=== PATIENT | female | born 1945 | race Caucasian/White ===

== ENCOUNTER 2018-01-05 01:24 | Outpatient (CLI) | payer MEDICARE, MEDICAID, SELFPAY ==
[2018-01-05 14:47] LABS: TSH (W/Ref FT4) 7.95 uIU/mL (0.358-3.74)
== END 2018-01-05 01:44 ==
PROVIDERS: PCP General Practice; Visit Provider General Practice
DX: E02 Subclinical iodine-deficiency hypothyroidism (principal)
CPT/HCPCS: 36415; 84439; 84443

== ENCOUNTER → 2018-01-10 12:24 | Outpatient (BNVA) | payer MEDICARE, MEDICAID, SELFPAY | PROVIDERS: Visit Provider Psychiatry & Neurology Neurology | DX: G20 Parkinson's disease (principal); I10 Essential (primary) hypertension | CPT/HCPCS: 99213 ==

== ENCOUNTER 2018-01-12 00:32 | Outpatient (CLI) | payer MEDICARE, MEDICAID, SELFPAY ==
--- NOTE | 2018-01-12 15:27 | DI.MAMMO_ITS ---
SYMPTOMS/DIAGNOSIS: SCREENING, Z12.31 MAMMOGRAM: Mammograms were interpreted according to the usual protocol including computer analysis with CAD system, tomosynthesis and C view imaging. The breast tissue is of moderate radiodensity. There is no dominant mass. Numerous bilateral benign appearing calcifications are seen. No suspicious clusters are identified. SUMMARY: No evidence of malignancy, Category 2, annual screening mammography is recommended. Breast density Category B. MQSA ASSESSMENT OF FINDINGS: MQSA ASSESSMENT OF FINDINGS: Negative with benign findings. Category 2. Patient will receive a letter notifying them of these results. BI-RADS category B. There are scattered areas of fibroglandular density.
== END 2018-01-12 00:52 ==
PROVIDERS: PCP General Practice; Visit Provider General Practice
DX: Z12.31 Encounter for screening mammogram for malignant neoplasm of breast (principal)
CPT/HCPCS: 77063; 77067

== ENCOUNTER → 2018-07-04 13:47 | Outpatient (BNVA) | payer MEDICARE, MEDICAID, SELFPAY | PROVIDERS: PCP General Practice; Visit Provider Psychiatry & Neurology Neurology | DX: G21.11 Neuroleptic induced parkinsonism (principal); I10 Essential (primary) hypertension | CPT/HCPCS: 99213 ==

== ENCOUNTER 2018-07-07 13:06 | Outpatient (CLI) | payer MEDICARE, MEDICAID, SELFPAY ==
[2018-07-07 14:52] LABS: TSH (W/Ref FT4) 6.59 uIU/mL (0.358-3.74)
[2018-07-07 15:09] LABS: ALT 26 U/L (12-78); AST 27 U/L (15-37); Albumin 3.7 g/dL (3.4-5.0); Alkaline Phosphatase 155 U/L (46-116); Bilirubin, Total 1.4 mg/dL (0.2-1.0); Cholesterol 160 mg/dL (50-200); Glucose 138 mg/dL (70-100); Total Protein 7.1 g/dL (6.4-8.2); Triglyceride 147 mg/dL (30-150)
[2018-07-07 15:11] LABS: FREE T4 0.86 ng/dL (0.76-1.46)
== END 2018-07-07 13:26 ==
PROVIDERS: PCP General Practice; Visit Provider Nurse Practitioner
DX: E03.9 Hypothyroidism, unspecified (principal); I10 Essential (primary) hypertension; R73.09 Other abnormal glucose; G21.11 Neuroleptic induced parkinsonism; Z79.899 Other long term (current) drug therapy; F32.9 Major depressive disorder, single episode, unspecified
CPT/HCPCS: 36415; 80076; 82947; 82465; 83036; 84439; 84443; 84478

== ENCOUNTER → 2019-01-05 12:54 | Outpatient (BNVA) | payer MEDICARE, MEDICAID, SELFPAY | PROVIDERS: PCP General Practice; Referring Provider General Practice; Visit Provider Psychiatry & Neurology Neurology | DX: G21.11 Neuroleptic induced parkinsonism (principal) | CPT/HCPCS: 99213 ==

== ENCOUNTER 2019-01-18 00:56 | Outpatient (CLI) | payer MEDICARE, MEDICAID, SELFPAY ==
[2019-01-18 14:50] LABS: FREE T4 0.96 ng/dL (0.76-1.46)
== END 2019-01-18 01:16 ==
PROVIDERS: PCP General Practice; Visit Provider General Practice
DX: E03.9 Hypothyroidism, unspecified (principal)
CPT/HCPCS: 36415; 84439; 84443

== ENCOUNTER → 2019-06-29 13:42 | Outpatient (BNVA) | payer MEDICARE, MEDICAID, SELFPAY | PROVIDERS: PCP Student in an Organized Health Care Education/Training Program; Referring Provider General Practice; Visit Provider Psychiatry & Neurology Neurology | DX: G21.11 Neuroleptic induced parkinsonism (principal); I10 Essential (primary) hypertension; K59.00 Constipation, unspecified | CPT/HCPCS: 99213 ==

== ENCOUNTER → 2019-11-02 12:01 | Outpatient (BNVA) | payer MEDICARE, MEDICAID, SELFPAY | PROVIDERS: PCP Student in an Organized Health Care Education/Training Program; Referring Provider Student in an Organized Health Care Education/Training Program; Visit Provider Psychiatry & Neurology Neurology | DX: G21.11 Neuroleptic induced parkinsonism (principal); I10 Essential (primary) hypertension | CPT/HCPCS: 99213 ==

== ENCOUNTER 2019-11-03 02:26 | Outpatient (CLI) | payer MEDICARE, MEDICAID, SELFPAY ==
[2019-11-03 11:40] LABS: ALT 11 U/L (14-59); AST 22 U/L (15-37); Albumin 3.7 g/dL (3.4-5.0); Alkaline Phosphatase 87 U/L (46-116); Anion Gap 9.9 mmol/L (3-11); BUN 18 mg/dL (7-18); Bilirubin, Total 1.5 mg/dL (0.2-1.0); CO2 26.1 mmol/L (21.0-32.0); CREATININE 0.77 mg/dL (0.55-1.02); Calcium 9.9 mg/dL (8.5-10.1); Calculated LDL 90 mg/dL (<100); Chloride 104 mmol/L (98-107); Cholesterol 183 mg/dL (<200); Glucose 95 mg/dL (74-106); HDL Cholesterol 79 mg/dL (40-60); Potassium 4.4 mmol/L (3.5-5.1); Sodium 140 mmol/L (136-145); TSH (W/Ref FT4) 3.69 uIU/mL (0.36-3.74); Triglyceride 71 mg/dL (<150)
[2019-11-06 07:11] LABS: Vitamin D 25 Total 63.2 ng/ml (30-100)
== END 2019-11-03 02:46 ==
PROVIDERS: PCP Student in an Organized Health Care Education/Training Program; Visit Provider Student in an Organized Health Care Education/Training Program
DX: E78.5 Hyperlipidemia, unspecified (principal); Z13.220 Encounter for screening for lipoid disorders; E03.9 Hypothyroidism, unspecified; F41.9 Anxiety disorder, unspecified; F32.9 Major depressive disorder, single episode, unspecified; K58.9 Irritable bowel syndrome, unspecified; M85.80 Other specified disorders of bone density and structure, unspecified site
CPT/HCPCS: 36415; 80053; 80061; 82306; 84443

== ENCOUNTER → 2019-11-13 10:52 | Outpatient (BNVA) | payer MEDICARE, MEDICAID, SELFPAY | PROVIDERS: PCP Student in an Organized Health Care Education/Training Program; Referring Provider Student in an Organized Health Care Education/Training Program; Visit Provider Nurse Practitioner Gerontology | DX: N39.46 Mixed incontinence (principal); I10 Essential (primary) hypertension; G20 Parkinson's disease | CPT/HCPCS: 99204; 99215 ==

== ENCOUNTER → 2020-05-13 13:25 | Outpatient (BNVA) | payer MEDICARE, MEDICAID, SELFPAY | PROVIDERS: PCP Student in an Organized Health Care Education/Training Program; Referring Provider Student in an Organized Health Care Education/Training Program; Visit Provider Nurse Practitioner Gerontology | DX: N39.46 Mixed incontinence (principal) | CPT/HCPCS: 99213 ==

== ENCOUNTER 2020-05-22 02:31 | Outpatient (CLI) | payer MEDICARE, MEDICAID, SELFPAY ==
[2020-05-22 16:26] LABS: TSH (W/Ref FT4) 6.09 uIU/mL (0.36-3.74)
[2020-05-22 16:44] LABS: FREE T4 0.84 ng/dL (0.76-1.46)
== END 2020-05-22 02:32 | disposition home or self-care (01) ==
LOC: LBO 02:31
PROVIDERS: PCP Student in an Organized Health Care Education/Training Program; Visit Provider Student in an Organized Health Care Education/Training Program
DX: R41.82 Altered mental status, unspecified (principal)
CPT/HCPCS: 36415; 84439; 84443

== ENCOUNTER 2020-08-12 03:22 | Outpatient (CLI) | payer MEDICARE, MEDICAID, SELFPAY ==
[2020-08-12 16:20] LABS: FREE T4 1.12 ng/dL (0.76-1.46)
== END 2020-08-12 03:23 | disposition home or self-care (01) ==
LOC: LBO 03:23
PROVIDERS: PCP Student in an Organized Health Care Education/Training Program; Visit Provider Student in an Organized Health Care Education/Training Program
DX: E03.9 Hypothyroidism, unspecified (principal)
CPT/HCPCS: 36415; 84439; 84443

== ENCOUNTER 2023-02-24 03:06 | Outpatient (CLI) | payer OTHER, MEDICAID, SELFPAY ==
[2023-02-24 11:26] LABS: ALT 9 U/L (14-59); AST 32 U/L (15-37); Albumin 3.7 g/dL (3.4-5.0); Alkaline Phosphatase 108 U/L (46-116); Anion Gap 8.5 mmol/L (3-11); BUN 16 mg/dL (7-18); Bilirubin, Total 1.6 mg/dL (0.2-1.0); CO2 28.5 mmol/L (21.0-32.0); Calcium 10.1 mg/dL (8.5-10.1); Calculated LDL 76 mg/dL (<100); Chloride 104 mmol/L (98-107); Cholesterol 170 mg/dL (<200); Estimated GFR 58.39 (mL/min/1.73m2); Glucose 109 mg/dL (74-106); HDL Cholesterol 83 mg/dL (40-60); Magnesium 2.1 mg/dL (1.8-2.4); Potassium 3.9 mmol/L (3.5-5.1); Sodium 141 mmol/L (136-145); TSH (W/Ref FT4) 3.07 uIU/mL (0.36-3.74); Total Protein 7.9 g/dL (6.4-8.2); Triglyceride 56 mg/dL (<150); Vitamin B12 391 pg/mL (193-986)
[2023-02-24 11:52] LABS: Folate > 20.0 ng/mL (8.6-20.0)
[2023-02-24 12:39] LABS: Vitamin D 25 Total 25.9 ng/mL (30-100)
== END 2023-02-24 03:07 | disposition home or self-care (01) ==
LOC: LBO 03:07
PROVIDERS: Absent Provider Student in an Organized Health Care Education/Training Program; PCP Student in an Organized Health Care Education/Training Program; Referring Provider Student in an Organized Health Care Education/Training Program; Visit Provider Student in an Organized Health Care Education/Training Program
DX: E03.9 Hypothyroidism, unspecified (principal); E55.9 Vitamin D deficiency, unspecified; I10 Essential (primary) hypertension; K58.9 Irritable bowel syndrome, unspecified; M85.80 Other specified disorders of bone density and structure, unspecified site; R60.0 Localized edema; Z13.220 Encounter for screening for lipoid disorders; Z90.09 Acquired absence of other part of head and neck; Z98.890 Other specified postprocedural states; Z90.89 Acquired absence of other organs
CPT/HCPCS: 36415; 80053; 80061; 82306; 82607; 82746; 83735; 84443

== ENCOUNTER 2023-05-25 03:15 | Outpatient (CLI) | payer OTHER, MEDICAID, SELFPAY ==
[2023-05-25 12:19] LABS: Abs Immature Grans 0.03 10^3/uL (0.0-0.06); Absolute Basophil Count 0.08 10^3/uL (0.0-0.2); Absolute Eosinophil Count 0.19 10^3/uL (0.0-0.7); Absolute Lymphocyte Count 2.23 10^3/uL (1.2-3.4); Absolute Monocyte Count 0.59 10^3/uL (0.1-0.8); Absolute Neutrophil Count 6.02 10^3/uL (1.2-6.7); Basophils % 0.9; Eosinophils % 2.1; HCT 40.4 % (36.0-46.0); HGB 13.7 g/dL (11.2-15.7); Immature Grans % 0.3; Lymphocytes % 24.4; MCH 31.5 pg (27.0-33.0); MCHC 33.9 % (32.0-36.0); MCV 93 fL (80-95); MPV 8.7 fL (8.0-11.0); Monocytes % 6.5; Neutrophils % 65.8; Platelet Count 265 10^3/uL (130-400); RBC 4.35 10^6/uL (3.93-5.22); RDW 13.5 % (11.7-14.6); RDW-SD 45.8 fL; WBC 9.14 10^3/uL (4.4-10.8)
[2023-05-25 13:13] LABS: Ferritin 112 ng/mL (8-252)
[2023-05-25 13:23] LABS: Vitamin D 25 Total 50.9 ng/mL (30-100)
[2023-05-25 13:29] LABS: Iron 47 ug/dL (50-170); Total Iron Binding Capacity 265 ug/dL (250-450); Transferrin Sat 18 % (15-50)
== END 2023-05-25 03:16 | disposition home or self-care (01) ==
LOC: LBO 03:16
PROVIDERS: PCP Student in an Organized Health Care Education/Training Program; Visit Provider Student in an Organized Health Care Education/Training Program
DX: Z72.820 Sleep deprivation; E55.9 Vitamin D deficiency, unspecified; D64.9 Anemia, unspecified
CPT/HCPCS: 36415; 82306; 82728; 83540; 83550; 85025

== ENCOUNTER 2023-10-25 02:31 | Outpatient (CLI) | payer OTHER, MEDICAID, SELFPAY ==
[2023-10-25 09:57] LABS: HGB 14.8 g/dL (11.2-15.7)
[2023-10-25 10:18] LABS: Hemoglobin A1C 5.4 % (<5.7)
[2023-10-25 11:01] LABS: ALT 19 U/L (14-59); AST 16 U/L (15-37); Albumin 3.6 g/dL (3.4-5.0); Alkaline Phosphatase 110 U/L (46-116); Anion Gap 11.9 mmol/L (3-11); BUN 23 mg/dL (7-18); Bilirubin, Total 1.84 mg/dL (0.2-1.0); CO2 25.1 mmol/L (21.0-32.0); CREATININE 1.1 mg/dL (0.55-1.02); Calcium 9.7 mg/dL (8.5-10.1); Chloride 106 mmol/L (98-107); Estimated GFR 52.08 (mL/min/1.73m2); Glucose 121 mg/dL (74-106); Sodium 143 mmol/L (136-145); TSH (W/Ref FT4) 3.39 uIU/mL (0.36-3.74); Total Protein 7.7 g/dL (6.4-8.2)
[2023-10-28 13:32] LABS: Lab Add On Test DONE
[2023-10-28 13:53] LABS: FREE T4 1.23 ng/dL (0.76-1.46)
== END 2023-10-25 02:32 | disposition home or self-care (01) ==
PROVIDERS: PCP Student in an Organized Health Care Education/Training Program; Referring Provider Student in an Organized Health Care Education/Training Program; Visit Provider Student in an Organized Health Care Education/Training Program
DX: F41.9 Anxiety disorder, unspecified (principal); F32.9 Major depressive disorder, single episode, unspecified; E03.9 Hypothyroidism, unspecified; K58.9 Irritable bowel syndrome, unspecified; K90.9 Intestinal malabsorption, unspecified; R60.0 Localized edema; Z72.820 Sleep deprivation; M85.80 Other specified disorders of bone density and structure, unspecified site; R73.09 Other abnormal glucose
CPT/HCPCS: 36415; 80053; 83036; 84439; 84443; 85018

== ENCOUNTER → 2024-03-20 13:06 | Outpatient (BNVA) | payer OTHER, MEDICAID, SELFPAY | PROVIDERS: PCP Student in an Organized Health Care Education/Training Program; Referring Provider Student in an Organized Health Care Education/Training Program; Visit Provider Nurse Practitioner Gerontology | DX: N39.46 Mixed incontinence (principal); N81.10 Cystocele, unspecified; R39.9 Unspecified symptoms and signs involving the genitourinary system | CPT/HCPCS: 51798; 99205 ==

== ENCOUNTER → 2024-05-09 10:57 | Outpatient (BNVA) | payer MEDICARE, MEDICAID, SELFPAY | PROVIDERS: PCP Nurse Practitioner Family; Referring Provider Student in an Organized Health Care Education/Training Program; Visit Provider Podiatrist | DX: L03.115 Cellulitis of right lower limb (principal); L97.911 Non-pressure chronic ulcer of unspecified part of right lower leg limited to breakdown of skin; R60.0 Localized edema; I89.0 Lymphedema, not elsewhere classified; B35.1 Tinea unguium; L60.3 Nail dystrophy; L60.8 Other nail disorders; L60.2 Onychogryphosis; L65.9 Nonscarring hair loss, unspecified | CPT/HCPCS: 29581; 99214 ==

== ENCOUNTER 2024-05-09 13:41 | Outpatient (CLI) | payer MEDICARE, MEDICAID, SELFPAY ==
[2024-05-09 12:49] LABS: Abs Immature Grans 0.04 10^3/uL (0.0-0.06); Absolute Basophil Count 0.11 10^3/uL (0.0-0.2); Absolute Eosinophil Count 0.31 10^3/uL (0.0-0.7); Absolute Lymphocyte Count 2.57 10^3/uL (1.2-3.4); Absolute Monocyte Count 0.68 10^3/uL (0.1-0.8); Absolute Neutrophil Count 5.98 10^3/uL (1.2-6.7); Basophils % 1.1 %; Eosinophils % 3.2 %; HCT 44.2 % (36.0-46.0); HGB 14.4 g/dL (11.2-15.7); Immature Grans % 0.4 %; Lymphocytes % 26.5 %; MCH 31.3 pg (27.0-33.0); MCHC 32.6 % (32.0-36.0); MCV 96 fL (80-95); MPV 8.9 fL (8.0-11.0); Neutrophils % 61.8 %; Platelet Count 311 10^3/uL (130-400); RDW 13.1 % (11.7-14.6); RDW-SD 46.3 fL; WBC 9.69 10^3/uL (4.4-10.8)
[2024-05-09 13:27] LABS: Albumin 3.2 g/dL (3.4-5.0); Anion Gap 6.1 mmol/L (3-11); BUN 20 mg/dL (7-18); CO2 30.9 mmol/L (21.0-32.0); CREATININE 0.9 mg/dL (0.55-1.02); Calcium 9.9 mg/dL (8.5-10.1); Chloride 105 mmol/L (98-107); Estimated GFR 65.84 (mL/min/1.73m2); Glucose 85 mg/dL (74-106); Potassium 4.3 mmol/L (3.5-5.1); Sodium 142 mmol/L (136-145); Vitamin D 25 Total 29.7 ng/mL (30-100)
== END 2024-05-09 13:42 | disposition home or self-care (01) ==
LOC: LBO 13:42
PROVIDERS: Podiatrist; PCP Nurse Practitioner Family; Visit Provider Student in an Organized Health Care Education/Training Program
DX: I10 Essential (primary) hypertension (principal); Z86.2 Personal history of diseases of the blood and blood-forming organs and certain disorders involving the immune mechanism; L03.90 Cellulitis, unspecified; R60.0 Localized edema; G25.81 Restless legs syndrome; K90.9 Intestinal malabsorption, unspecified; R79.89 Other specified abnormal findings of blood chemistry; L03.115 Cellulitis of right lower limb
CPT/HCPCS: 29581; 36415; 80048; 82306; 99214; 82040; 85025

== ENCOUNTER 2024-11-14 15:14 | Emergency (ER) | payer MEDICARE, MEDICAID, SELFPAY ==
[2024-11-14 15:14] VITALS: BP 170/82; PULSE 84; RESP 15; TEMP 36.4; O2SAT 96
--- NOTE | 2024-11-14 15:15 | DI.US_ITS ---
Exam(s) US EXTREMITY VENOUS BI EXAM: US EXTREMITY VENOUS BI CLINICAL HISTORY: bilateral leg swelling. TECHNIQUE: Bilateral lower extremity venous ultrasound performed using grayscale, color-flow, and spectral Doppler analysis. COMPARISON: No exams were available for comparison FINDINGS: The bilateral common femoral, femoral and popliteal veins demonstrate normal compressibility, augmentation, and color Doppler. The right posterior tibial veins are patent. One of the left posterior tibial veins was difficult to visualize however was compressible. There is edema in the bilateral subc utaneous fat of the lower legs. No focal collection. IMPRESSION: Right: Negative for DVT Left: Negative for DVT DATA REPOSITORY:
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
[2024-11-14 16:55] LABS: Abs Immature Grans 0.06 10^3/uL (0.0-0.06); HCT 42.5 % (36.0-46.0); HGB 13.9 g/dL (11.2-15.7); Immature Grans % 0.7 %; MCH 31.1 pg (27.0-33.0); MCHC 32.7 % (32.0-36.0); MCV 95 fL (80-95); MPV 8.4 fL (8.0-11.0); Platelet Count 256 10^3/uL (130-400); RBC 4.47 10^6/uL (3.93-5.22); RDW 13.2 % (11.7-14.6); RDW-SD 46.0 fL; WBC 8.90 10^3/uL (4.4-10.8)
[2024-11-14 16:56] LABS: ESR 9 mm/hr (0-30)
[2024-11-14 17:10] LABS: ALT 17 U/L (14-59); AST 16 U/L (15-37); Albumin 3.1 g/dL (3.4-5.0); Alkaline Phosphatase 99 U/L (46-116); Anion Gap 3.8 mmol/L (3-11); BUN 20 mg/dL (7-18); Bilirubin, Total 1.2 mg/dL (0.2-1.0); C-Reactive Protein 1.51 mg/dL (<or=0.5); CO2 31.2 mmol/L (21.0-32.0); Calcium 9.4 mg/dL (8.5-10.1); Chloride 102 mmol/L (98-107); Estimated GFR 88.47 (mL/min/1.73m2); Glucose 107 mg/dL (74-106); Magnesium 1.9 mg/dL (1.8-2.4); Potassium 4.4 mmol/L (3.5-5.1); Sodium 137 mmol/L (136-145); Total Protein 7.0 g/dL (6.4-8.2)
[2024-11-14 17:52] VITALS: BP 148/83; PULSE 82; RESP 20; TEMP 36.6; O2SAT 97
== END 2024-11-14 17:52 | disposition home or self-care (01) ==
PROVIDERS: Emergency Provider Emergency Medicine; PCP Family Medicine
DX: R22.41 Localized swelling, mass and lump, right lower limb (principal); R22.42 Localized swelling, mass and lump, left lower limb
CPT/HCPCS: 99284; 99283; 36415; 80053; 85652; 83735; 85025; 86140; 93970

== ENCOUNTER 2025-01-12 04:16 | Outpatient (CLI) | payer MEDICARE, MEDICAID, SELFPAY ==
[2025-01-12 14:55] LABS: NT-proBNP 47 pg/mL (<300)
== END 2025-01-12 04:17 | disposition home or self-care (01) ==
LOC: LBO 04:16
PROVIDERS: PCP Nurse Practitioner Family; Visit Provider Family Medicine
DX: I50.9 Heart failure, unspecified (principal); R60.0 Localized edema
CPT/HCPCS: 36415; 93306; 83880

== ENCOUNTER 2025-01-12 05:02 | Outpatient (CLI) | payer MEDICARE, MEDICAID, SELFPAY ==
--- NOTE | 2025-01-12 13:50 | DI.US_ITS ---
APPROVED REPORT EXAM: Comprehensive 2D, Doppler, and color-flow Echocardiogram Patient Location: Out-Patient Channel Development Director: Richard Reese RDCS (AE) Indications: Pedal edema/weight gain, heart failure Other Information Study Quality: Fair Conclusion Normal left ventricular wall thickness and chamber size. Ejection fraction is 60%. Wall motion is normal Normal right ventricular size and function Both atria are mildly enlarged The aortic valve is mildly sclerotic and trileaflet with mild regurgitation Mild mitral annular calcification. Trace mitral regurgitation Mild tricuspid regurgitation. Estimated right ventricular systolic pressure is 39 mmHg Ascending aorta measures 3.75 cm Wall motion Left Ventricle The left ventricle is normal size. The left ventricular systolic function is normal. The left ventricular ejection fraction is within the normal range. There is normal left ventricular wall thickness. There is normal LV segmental wall motion. There is no ventricular septal defect visualized. LVEF is 60%. Right Ventricle The right ventricle is normal size. The right ventricular systolic function is normal. Atria Left atrium is mildly dilated. Right atrium is mildly dilated. The interatrial septum is intact with no evidence for an atrial septal defect. Aortic Valve The aortic valve is mildly sclerotic. Aortic valve is trileaflet. No hemodynamically significant valvular aortic stenosis. Mild aortic regurgitation. Mitral Valve Mild mitral annular calcification No evidence of mitral valve stenosis. Trace mitral regurgitation. Tricuspid Valve The tricuspid valve is normal in structure. There is no tricuspid valve stenosis. Mild tricuspid regurgitation. The RVSP is 39.0 mmHg. Pulmonic Valve The pulmonary valve is normal in structure. There is no pulmonic valvular stenosis. Mild to moderate pulmonic regurgitation. Great Vessels The aortic root is normal in size. The ascending aorta is mildly dilated. Aortic arch is normal in caliber. IVC is normal in size and collapses >50% with inspiration. Pericardium There is no pericardial effusion. 2D Dimensions IVSD d PLAX 1.06 cm F: 0.6-1.0 Ao Root d 3.15 cm F: 2.7 - 3.3 LVPW d PLAX 0.99 cm F: 0.6 - 1.0 Ao Asc Diam d 3.75 cm F: 2.3 - 3.1 LVID d PLAX 5.39 cm F: 3.8 - 5.2 LVDs 3.67 cm F: 2.2 - 3.5 LV EF Teichholz 59.6 % FS 32.00 % LV EDV (Teich) 140.7 mL LV ESV (Teich) 56.8 mL Stroke Vol Index (Teich) 47.13 M-Mode TAPSE 1.81 cm (M/F) >1.7 Auto EF LV EDV A4C 101.4 mL LV EDV A2C 81.5 mL LV EDV BP 93.2 mL LV ESV A4C 42.4 mL LV ESV A2C 32.3 mL LV ESV BP 38.6 mL LVEF(%) A4C 58.2 % LVEF(%) A2C 60.4 % LVEF(%) BP 58.6 % LV SV A4C 59.0 ml LV SV A2C 49.2 ml LV SV BP 54.6 ml LV CO A4C 5.4 L/min LV CO A2C 4.0 L/min LV CO BP 4.7 L/min HR A4C 91.38 BPM HR A2C 81.08 BPM LV EDV Index (BP) LA Volume LA Length A4C 4.7 cm LA Length A2C LA Area A4C s 9.22 cm2 LA Area A2C s LA Vol A4C A-L 15.23 mL LA Vol A2C A-L LA Vol Biplane A-L LA Vol A4C MOD 14.3 mL LA Vol A2C MOD LA Vol BP MOD RA Volume RA Area A4C 12.6 cm2 RA ESV A4C (A-L) 28.4mL RA Vol/BSA A4C A-L RA Length A4C 4.7 cm RA ESV A4C (MOD) 27.6mL LV Diastology MV E' medial 0.138 (>0.07 m/s) MV E Vmax 0.73 (0.4-1.3 m/s) MV E/E' MED 5.28 (<14) MV A Vmax 1.35 (0.4-1.3 m/s) MV E' lateral 0.201 (>0.1 m/s) E/A Ratio 0.5 MV E/E' LAT 3.64 (<14) MV E' Average 0.170 m/s MV E/E'(average) 4.31 Aortic Valve AoV Vmax 2.18 m/s LVOT Vmax 1.35 m/s AoV Peak Grad 55.0 mmHg LVOT Peak Grad 7.3 mmHg AoV Area (Vmax) 1.07 cm2 LVOT VTI 0.316 m AoV VTI 0.466 m LVOT Mean Grad 4.8 mmHg AoV Mean Jose. 1.59 m/s LVOT SV 54.70 mL AoV Mean Grad 10.9 mmHg LVOT Diam s 1.45 cm AoV Area (VTI) 1.17 cm2 AV Regurg Peak Gr. 19.06 mmHg Velocity Ratio 0.62 AR Decel [place] 2.3m/sec2 AR DT 2044 msec AR PHT 593 msec AR Vmax 4.77 m/s Mitral Valve MV DT 108 (160-240 msec) Tricuspid Valve RA Pressure 3.00 mmHg TR Vmax 3.00 m/s TR Peak Grad 36.0 mmHg RVSP (TR) 39.0 mmHg
== END 2025-01-12 05:22 ==
LOC: DI 05:02
PROVIDERS: PCP Nurse Practitioner Family; Visit Provider Family Medicine
DX: I50.9 Heart failure, unspecified (principal)
CPT/HCPCS: 93306

== ENCOUNTER → 2025-01-24 14:49 | Outpatient (BNVA) | payer MEDICARE, MEDICAID, SELFPAY | PROVIDERS: PCP Nurse Practitioner Family; Referring Provider Nurse Practitioner Family; Visit Provider Podiatrist | DX: B35.1 Tinea unguium (principal); M79.674 Pain in right toe(s); M79.675 Pain in left toe(s); L97.911 Non-pressure chronic ulcer of unspecified part of right lower leg limited to breakdown of skin; L03.115 Cellulitis of right lower limb; R60.0 Localized edema; I89.0 Lymphedema, not elsewhere classified; I83.93 Asymptomatic varicose veins of bilateral lower extremities; L65.9 Nonscarring hair loss, unspecified; R23.4 Changes in skin texture; L60.2 Onychogryphosis; L60.8 Other nail disorders | CPT/HCPCS: 99213; 11721 ==

== ENCOUNTER 2025-02-06 08:08 | Outpatient (CLI) | payer MEDICARE, MEDICAID, SELFPAY ==
--- NOTE | 2025-02-06 08:00 | RT.EKG_ITS ---
APPROVED REPORT Exam: Resting ECG Reason for Exam: edema Patient Location: O HR:87 bpm ECG Measurements Heart Rate 87 AXIS RI 179 P 19 QRSd 109 QRS 132 QT 370 T -2 QTc 445 Conclusion Sinus rhythm...normal P axis, V-rate 50- 99 RBBB
== END 2025-02-06 08:09 | disposition home or self-care (01) ==
LOC: DI.CARD 08:09
PROVIDERS: PCP Nurse Practitioner Family; Visit Provider Internal Medicine Cardiovascular Disease
DX: R60.0 Localized edema (principal); I45.10 Unspecified right bundle-branch block
CPT/HCPCS: 93010

== ENCOUNTER → 2025-02-06 13:01 | Outpatient (BNVA) | payer MEDICARE, MEDICAID, SELFPAY | PROVIDERS: PCP Nurse Practitioner Family; Referring Provider Nurse Practitioner Family; Visit Provider Internal Medicine Cardiovascular Disease | DX: I89.0 Lymphedema, not elsewhere classified (principal) | CPT/HCPCS: 99203; 93005 ==

== ENCOUNTER 2025-03-15 12:11 | Outpatient (REF) | payer MEDICARE, MEDICAID, SELFPAY | END 2025-03-15 12:12 | disposition home or self-care (01) | LOC: LBN 12:11 | PROVIDERS: PCP Nurse Practitioner Family; Visit Provider Nurse Practitioner Family | DX: L97.911 Non-pressure chronic ulcer of unspecified part of right lower leg limited to breakdown of skin (principal) | CPT/HCPCS: 87070 ==